=== PATIENT | female | born 1985 | race Caucasian/White ===

== ENCOUNTER 2020-09-04 18:55 | Inpatient (IN) | payer BC ==
--- OUTSIDE RECORDS SUMMARY | 2020-09-04 19:44 | XMS ---
:1985 Author Organization [facility] Re-disclosure Warning The records that you are about to access may contain information from federally- assisted alcohol or drug abuse programs. If such information is present, then the following federally mandated warning applies: This information has been disclosed to you from records protected by federal confidentiality rules (42 CFR part 2). The federal rules prohibit you from making any further disclosure of this information unless further disclosure is expressly permitted by the written consent of the person to whom it pertains or as otherwise permitted by 42 CFR part 2. A general authorization for the release of medical or other information is NOT sufficient for this purpose. The Federal rules restrict any use of the information to criminally investigate or prosecute any alcohol or drug abuse patient.The records that you are about to access may contain highly sensitive health information, the redisclosure of which is protected by Article 27-F of the [facility] Public Health law. If you continue you may haveaccess to information: Regarding HIV / AIDS; Provided by facilities licensed or operated by the [facility] Office of Mental Health; or Provided by the [facility] Office for People With Developmental Disabilities. If such information is present, then the following [facility] mandated warning applies: This information has been disclosed to you from confidential records which are protected by state law. State law prohibits you from making any further disclosure of this information without the specific written consent of the person to whom it pertains, or as otherwise permitted by law. Any unauthorized further disclosure in violation of state law may result in a fine or snf sentence or both. A general authorization for the release of medical or other information is NOT sufficient authorization for further disclosure. Insurance Providers Payer name Policy type / Policy ID Covered Covered libertarian's Policy Plan Coverage type libertarian ID relationship to Peterson Information peterson BC POS [id number] SP [id number] Results ID Date Data Source [id number] 08/31/2020 02:16:00 PM EST [facility] Name Value Range Interpretation Description Data Sup porting Code Source(s) Document(s ) SARS [facility] coronavirus 2 RNA This lab was ordered by [facility] and reported by [facility]. Procedure
[2020-09-04 20:27] LABS: BASO % 0.2 % (0-2.0); EOS % 0.6 % (0-4.5); HEMOGLOBIN 13.5 GM/dL (10.7-15.3); LYMPH % 22.6 % (8-40); MCH 31.2 pg (25.7-33.7); MCHC 34.6 g/dl (32.0-36.0); MEAN CELL VOLUME 90.1 fl (80-96); MEAN PLT VOLUME 10.5 fl (7.5-11.1); MONO % 5.5 % (3.8-10.2); NEUT % 71.1 % (42.8-82.8); PLATELET COUNT 162 K/MM3 (134-434); RBC 4.33 M/mm3 (3.60-5.2); RDW 14.2 % (11.6-15.6); WHITE BLOOD COUNT 10.7 K/mm3 (4.0-10.0)
[2020-09-04] MEDS ORDERED: DINOPROSTONE 10 MG VAGINAL SUPPOSITORY VG ONE (20:29)
[2020-09-04] MEDS ORDERED: DEXTROSE 5%-LACTATED RINGERS 1,000 ML IV SCH (20:30)
--- NOTE | 2020-09-04 20:35 | HP ---
Past Medical History - Primary Care Physician PCP:: Navid Duvall - Admission Chief Complaint: 34yo P1 with at EGA 40wks admitted for labor indx. 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 (Patient with h/o Spina Bifida occulta) Cardiovascular: No: AFIB, Aneurysm, Aortic Insufficiency, Aortic Stenosis, CAD, CHF, Deep Vein Thrombosis, HTN, Hyperlipdemia, [place], Mitral Insufficiency, Mitral Stenosis, Murmur, Pulmonary Hypertension, Other Pulmonary: No: Asthma, Bronchitis, Cancer, COPD, O2 Dependent, Pneumonia, Previously Intubated, Pulmonary Embolus, Pulmonary Fibrosis, Sleep Apnea, Other Gastrointestinal: No: Ascites, Cancer, Constipation, Crohn's Disease, Diverticulitis, Diverticulosis, Esophageal Varices, Gastritis, GERD, GI Bleed, Hemorrhoids, Hiatal Hernia, Inflamatory Bowel Disease, Irritable Bowel Disease, Pancreatitis, Peptic Ulcer Disease, Ulcerative Colitis, Other Hepatobiliary: No: Cirrhosis, Cholelithiasis, Cholecystitis, Choledocholithiasis, Hepatitis A, Hepatitis B, Hepatitis C, Other Renal/: No: Renal Failure, Renal Inusuff, BPH, Cancer, Hematuria, Hemodialys is, Neurogenic Bladder, Renal Calculi, UTI, Other Reproductive: No: Ectopic , Endometriosis, Fibroids, PID, Polycystic Ovary Syndrome, Postmenopausal, Other ...Para: 1 () ...Term: 1 ... Weeks Gestation by Dates: 40 Heme/Onc: No: Anemia, B12 Deficiency, Bleeding Disorder, Cancer, Current Chemotherapy, Current Radiation Therapy, Hemochromatosis, Hypercoaguable State, Myeloproliferative Synd, Sickle Cell Disease, Sickle Cell Trait, Thrombocytopenia, Other Infectious Disease: Yes: Other (genital HSV hx) Psych: No: Addictions, Anxiety, Bipolar, Depression, Panic, Psychosis, Schizophrenia, Other Musculoskeletal: No: Bursitis, Chronic low back pain, Hemiparesis, Hemiplegia, Osteoarthritis, Paraplegia, Other Rheumatology: No: Fibromyalgia, Gout, Lupus, Rheumatoid Arthritis, Sarcoidosis, Vasculitis, Other ENT: No: Allergic Rhinitis, Sinusitis, Other Dermatology: No: Basal Cell, Cellulitis, Eczema, Melanoma, Psoriasis, Squamous Cell, Other - Past Surgical History Past Surgical History: Yes: None Hx Myomectomy: No Hx Transabdominal Cerclage: No - Smoking History Smoking history: Never smoked Have you smoked in the past 12 months: No - Alcohol/Substance Use Hx Alcohol Use: No History of Substance Use: reports: None - Social History Usual Living Arrangement: Yes: With Spouse, With Child Do you think of yourself as: Straight/Heterosexual ADL: Independent History of Recent Travel: No Home Medications - Allergies Allergies/Adverse Reactions: Allergies Allergy/AdvReac Type Severity Reaction Status Date / Time No Known Allergies Allergy Verified 09/04/20 20:00 - Home Medications Home Medications: Ambulatory Orders Acyclovir BID 09/04/20 Dha 09/04/20 Family Medical History Family Hx Cardiac Disorders: Mother Review of Systems - Review of Systems Constitutional: reports: No Symptoms Eyes: reports: No Symptoms HENT: reports: No Symptoms Neck: reports: No Symptoms Cardiovascular: reports: No Symptoms Respiratory: reports: No Symptoms Gastrointestinal: reports: No Symptoms Genitourinary: reports: No Symptoms Breasts: reports: No Symptoms Reported Musculoskeletal: reports: No Symptoms Integumentary: reports: No Symptoms Neurological: reports: No Symptoms Endocrine: reports: No Symptoms Hematology/Lymphatic: reports: No Symptoms Psychiatric: reports: No Symptoms Pain Intensity: 0 Physical Exam - Maternity Constitutional: Yes: Well Nourished, No Distress, Calm Eyes: Yes: WNL, Conjunctiva Clear, EOM Intact HENT: Yes: WNL, Atraumatic, Normocephalic Neck: Yes: WNL, Supple, Trachea Midline Cardiovascular: Yes: WNL, Regular Rate and Rhythm Lungs: Clear to auscultation, Normal air movement Breast(s): Yes: WNL - Abdominal Exam/OB Fundal Height: 40 Number of Fetuses: Single Presentation: Vertex Contractions: Yes Regularity: Irritability Intensity: Unaware Monitor Mode: External Heart Rate (range): 140 Heart Rate Location: Midline Category: I Accelerations: Uniform Decelerations: None - Vaginal Exam/OB Vaginal Bleeding: No Speculum Exam: No Dilatation (cm): 1 Effacement (%): 0 Amniotic Membrane Status: Intact Presentation: Vertex/Position Station: -4 (Gynecoid pelvimetry, EFW 3400 gm by Armaan covington) - Physical Exam Musculoskeletal: Yes: WNL Extremities: Yes: WNL Edema: No Integumentary: Yes: WNL Deep Tendon Reflex Grade: Normal +2 ...Motor Strength: WNL Psychiatric: Yes: WNL, Alert, Oriented Hemorrhage Risk Assessment - Risk Factors Medium Risk Factors: Yes: None High Risk Factors: Yes: None Risk Score: 1 Risk Level: Medium Risk Imaging - Results Ultrasound: Report Reviewed Assessment/Plan 34yo P1 with at EGA 40wks admitted for labor indx. Pt is not in labor. Fetus with Category I tracing. Adequate gynecoid pelvimetry on exam. We had long discussion re: risks, benefits, and alternatives of labor induction. I explained the options of expectant management awaiting spontaneous labor, induction of labor, and elective section. The risks of uterine tachysystole, distress, uterine rupture, need for emergency C/S, hemorrhage, infection, scarring, etc. were discussed. We also discussed the risks of meconium aspiration, shoulder dystocia, and anesthesia options. The pt requested to proceed with induction. We discussed the alternative methods of induction with Cervidil, Cytotec, Folley ballon, and pitocin. The pt prefers Cervidil followed by pitocin, if needed
[2020-09-04 20:40] LABS: INR 0.88 (0.83-1.09); PROTHROMBIN TIME (PATIENT) 10.7 SEC (9.7-13.0)
[2020-09-04 20:43] LABS: ACTIVATED PTT 25.9 SECONDS (25.2-36.5)
[2020-09-04 20:58] LABS: CALCIUM 8.4 mg/dL (8.5-10.1)
[2020-09-04 21:01] LABS: CREATININE 0.7 mg/dL (0.55-1.3)
[2020-09-04 21:47] VITALS: BMI 30.1
[2020-09-05] MEDS ORDERED: AMPICILLIN SODIUM 2 GM VIAL ONE (02:41)
[2020-09-05] MEDS ORDERED: BUTORPHANOL TARTRATE 2 MG/ML VIAL ONE (02:41)
[2020-09-05] MEDS ORDERED: SODIUM CHLORIDE 100 ML IVPB ONE ×3 (02:41→10:27)
[2020-09-05] MEDS ORDERED: PROMETHAZINE HCL 25 MG/1 ML VIAL ONE (02:41)
[2020-09-05] MEDS ORDERED: AMPICILLIN - 2 GM in SODIUM CHLORIDE 100 ML IVPB ONE (02:45)
[2020-09-05] MEDS ORDERED: PROMETHAZINE HCL 25 MG/1 ML VIAL IVPB ONE (02:45)
[2020-09-05] MEDS ORDERED: BUTORPHANOL TARTRATE 2 MG/ML VIAL IVPB ONE (02:45)
[2020-09-05] MEDS ORDERED: PCA PUMP NR ONE (03:22)
[2020-09-05] MEDS ORDERED: FENTANYL/BUPIVACAINE/NS/PF - PCEA - 50 ML DISP.SYRIN EP ONE ×2 (03:22→09:40)
[2020-09-05] MEDS: FENTANYL/BUPIVACAINE/NS/PF - PCEA - 50 ML DISP.SYRIN EP SCH ×2 (04:40→09:30)
[2020-09-05] MEDS ORDERED: BUPIVACAINE HCL/PF 0.25% (2.5MG/ML) 10 ML VIAL ONE ×2 (04:45→09:15)
[2020-09-05] MEDS ORDERED: NALOXONE HCL 0.4 MG/ML VIAL IVPUSH PRN (04:58)
--- NOTE | 2020-09-05 05:27 | PN ---
Progress Note (short form) - Note Progress Note: Anesthesiologist note Requested labor epidural. Dinorah is 34 y old female, in labor. History of spina bifida occult, an incidental finding at age of 22 due to back pain. Never had MRI of her back done. Denies any symptoms other than back pain if she does strenuous physical activity. Denies any weakness in extremities. Reports no bladder and bowel function deficiency. Had labor epidural 7 years ago without any complications at [facility]. In addition pat is sickle cell disease carrier. On physical exam, grossly intact neurologically. Lower extremity strength and sensitivity intact. Awake, somewhat drowsy after stadol but is able to give adequate history, oriented x3. Risks and benefits of epidural in general and specifically in Spina bifida occult included but not limited to higher risk of wet tap and possible unpredictable epidural coverage explained for the patient and her . Patient and her consented to proceed with the procedure. Discussed with dr Duvall, no further information or MRI available. See Anesthesia record for procedure note.
[2020-09-05] MEDS: AMPICILLIN - 1 GM in SODIUM CHLORIDE 100 ML IVPB SCH ×3 (06:45→23:59)
[2020-09-05] MEDS ORDERED: AMPICILLIN SODIUM 1 GM VIAL ONE ×2 (06:48→10:27)
--- NOTE | 2020-09-05 07:32 | PN ---
Ante-Partal Exam - Subjective Subjective: No complaints. Pt is s/p epidural. Marina spontaneously. Vital Signs: Vital Signs Temperature 98.5 F 09/05/20 06:00 Pulse Rate 71 09/05/20 06:45 Respiratory Rate 16 09/05/20 06:45 Blood Pressure 130/82 09/05/20 06:45 O2 Sat by Pulse Oximetry (%) 99 09/05/20 06:45 Bleeding: No Headache: No Visual changes: No Right upper quadrant pain: No Pain (scale 1-10): 0 - Contractions Contractions: Yes Regularity: Irregular (q2-4min) Intensity: Unaware Monitor Mode: External - Exam during Labor Heart Rate: 140 Variability: Moderate Heart Rate Location: Midline Category: I Monitor Accelerations: Present Monitor Decelerations: None Exam: Vaginal Dilatation (cm): 6 Effacement (%): 80 Amniotic Membrane Status: Intact Presentation: Vertex Station: -1 - Intrapartum Hemorrhage Risk Medium Risk Factors: None High Risk Factors: None Risk Score: 0 Risk Level: Low Risk - Assessment/Plan Assessment/Plan: Pt progressed to active labor. Gynecoid pelvimetry Fetus with category I tracing Continue monitoring labor.
[2020-09-05] MEDS ORDERED: OXYTOCIN 20 UNITS in 0.9% NS 20 UNIT/1,000 ML INFUS.BAG IV ONE (12:54)
[2020-09-05] MEDS ORDERED: LIDOCAINE HCL 1% PRESERVATIVE FREE - 30ML VIAL ONE (13:42)
[2020-09-05] MEDS ORDERED: BENZOCAINE 28 GM HEMORRHOIDAL OINTMENT TP PRN (13:58)
[2020-09-05] MEDS ORDERED: BISACODYL 10 MG SUPP.RECT RC PRN (13:58)
[2020-09-05] MEDS ORDERED: METHYLERGONOVINE MALEATE 0.2 MG/1 ML AMP IM PRN (13:58)
[2020-09-05] MEDS ORDERED: WITCH HAZEL 50% (TUCKS) 40 PAD/JAR PAD TP PRN (13:58)
[2020-09-05] MEDS ORDERED: BENZOCAINE 20% 57 GM BOTTLE TP PRN (13:58)
[2020-09-05] MEDS ORDERED: OXYTOCIN 20 UNITS in 0.9% NS 20 UNIT/1,000 ML INFUS.BAG IV SCH (14:00)
[2020-09-05] MEDS: IBUPROFEN 600 MG TABLET (FP) PO PRN (15:56)
[2020-09-05] MEDS: ACETAMINOPHEN 325 MG TABLET (FP) PO PRN (15:58)
--- NOTE | 2020-09-05 22:38 | PN ---
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
[2020-09-06] MEDS: IBUPROFEN 600 MG TABLET (FP) PO PRN (03:02)
[2020-09-06] MEDS: ACETAMINOPHEN 325 MG TABLET (FP) PO PRN (03:02)
[2020-09-06 09:35] LABS: BASO % 0.1 % (0-2.0); EOS % 0.9 % (0-4.5); HEMATOCRIT 36.3 % (32.4-45.2); HEMOGLOBIN 12.3 GM/dL (10.7-15.3); LYMPH % 14.8 % (8-40); MCH 31.1 pg (25.7-33.7); MCHC 33.7 g/dl (32.0-36.0); MEAN PLT VOLUME 10.5 fl (7.5-11.1); MONO % 3.5 % (3.8-10.2); NEUT % 80.7 % (42.8-82.8); PLATELET COUNT 148 K/MM3 (134-434); RBC 3.95 M/mm3 (3.60-5.2); RDW 14.5 % (11.6-15.6); WHITE BLOOD COUNT 13.7 K/mm3 (4.0-10.0)
--- NOTE | 2020-09-06 09:35 | PN ---
Post Progress Note - Subjective Subjective: Patient without acute complaints. Reports tolerating oral intake without nausea or vomiting. Ambulating without dizziness. Denies fevers or chills. Pain well controlled with oral pain medication. without difficulty. Post Day: 1 Type of Delivery: Vital Signs: Vital Signs Temperature 98.3 F 09/06/20 04:53 Pulse Rate 80 09/06/20 04:53 Respiratory Rate 18 09/06/20 04:53 Blood Pressure 127/66 09/06/20 04:53 O2 Sat by Pulse Oximetry (%) 97 09/05/20 18:00 Breast Exam: Yes: Soft Uterus: Yes: Fundus Firm, Fundus @ umbilicus Abdomen/GI: Yes: Abdomen soft, Tolerating PO Lochia: Yes: Rubra Lochia, amount: Small Extremities: Yes: Calves non-tender Activity: Ambulating - Labs Labs: CBC WBC 10.7 K/mm3 (4.0-10.0) H 09/04/20 20: RBC 4.33 M/mm3 (3.60-5.2) 09/04/20 20:02 Hgb 13.5 GM/dL (10.7-15.3) 09/04/20 20: Hct 39.0 % (32.4-45.2) 09/04/20 20: MCV 90.1 fl (80-96) 09/04/20 20: MCH 31.2 pg (25.7-33.7) 09/04/20 20: MCHC 34.6 g/dl (32.0-36.0) 09/04/20 20: RDW 14.2 % (11.6-15.6) 09/04/20 20: Plt Count 162 K/MM3 (134-434) 09/04/20 20: MPV 10.5 fl (7.5-11.1) 09/04/20 20: Absolute Neuts (auto) 7.6 K/mm3 (1.5-8.0) 09/04/20 20: Neutrophils % 71.1 % (42.8-82.8) 09/04/20 20: Lymphocytes % 22.6 % (8-40) 09/04/20 20: Monocytes % 5.5 % (3.8-10.2) 09/04/20 20:02 Eosinophils % 0.6 % (0-4.5) 09/04/20 20:02 Basophils % 0.2 % (0-2.0) 09/04/20 20:02 Nucleated RBC % 0 % (0-0) 09/04/20 20:02 Assessment/Plan 34yo P2 now s/p doing well VSS, Afebrile Labs wnl Rh pos no need for RhoGam Baby boy for circumcision Plan to d/c in am
--- NOTE | 2020-09-06 09:35 | DS ---
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: Vital Signs Temperature 98.3 F 09/06/20 04:53 Pulse Rate 80 09/06/20 04:53 Respiratory Rate 18 09/06/20 04:53 Blood Pressure 127/66 09/06/20 04:53 O2 Sat by Pulse Oximetry (%) 97 09/05/20 18:00 Labs: CBC, BMP 09/04/20 20:02 Delivery - Delivery Vaginal Delivery: No Problems, Spontaneous Type of Anesthesia: Local, Epidural Episiotomy/Laceration: 2nd degree EBL (cc): 350 Delivery, Single - Stages of Labor Date 1st Stage Initiatied: 09/05/20 Time 1st Stage Initiated: 02:30 Date 2nd Stage Initiated: 09/05/20 Time 2nd Stage Initiated: 13:00 Date of Delivery: 09/05/20 Time of Delivery: 13:37 Time Placenta Delivered: 13:45 Placenta: Yes: Spontaneous, Normal Configuration - Condition of Infant 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
[2020-09-06] MEDS: PRENATAL VITAMINS W/ FOLIC ACID TABLET (FP) PO SCH (09:46)
[2020-09-06] MEDS ORDERED: SENNOSIDES/DOCUSATE COMBO (SENNA PLUS) TABLET (UD) PO PRN (22:00)
[2020-09-07 08:41] VITALS: BP 126/75; PULSE 78; TEMP 98.2
[2020-09-07] MEDS: PRENATAL VITAMINS W/ FOLIC ACID TABLET (FP) PO SCH (09:20)
--- NOTE | 2020-09-07 13:05 | PN ---
Post Progress Note - Subjective Subjective: Patient without acute complaints. Reports tolerating oral intake without nausea or vomiting. Ambulating without dizziness. Denies fevers or chills. Pain well controlled with oral pain medication. without difficulty. Passing flatus. Type of Delivery: Vital Signs: Vital Signs Temperature 98.2 F 09/07/20 08:39 Pulse Rate 78 09/07/20 08:39 Respiratory Rate 18 09/07/20 08:39 Blood Pressure 126/75 09/07/20 08:39 O2 Sat by Pulse Oximetry (%) 96 09/07/20 08:39 Breast Exam: Yes: Soft Uterus: Yes: Fundus Firm Abdomen/GI: Yes: Abdomen soft, Passing flatus, Tolerating PO. No: Abdominal Distention, Tender Lochia: Yes: Rubra Lochia, amount: Small Extremities: No: Calves non-tender, Edema Activity: Ambulating - Labs Labs: CBC WBC 13.7 K/mm3 (4.0-10.0) H 09/06/20 08:33 RBC 3.95 M/mm3 (3.60-5.2) 09/06/20 08:33 Hgb 12.3 GM/dL (10.7-15.3) 09/06/20 08:33 Hct 36.3 % (32.4-45.2) 09/06/20 08:33 MCV 92.0 fl (80-96) 09/06/20 08:33 MCH 31.1 pg (25.7-33.7) 09/06/20 08:33 MCHC 33.7 g/dl (32.0-36.0) 09/06/20 08:33 RDW 14.5 % (11.6-15.6) 09/06/20 08:33 Plt Count 148 K/MM3 (134-434) 09/06/20 08:33 MPV 10.5 fl (7.5-11.1) 09/06/20 08:33 Absolute Neuts (auto) 11.0 K/mm3 (1.5-8.0) H 09/06/20 08:33 Neutrophils % 80.7 % (42.8-82.8) 09/06/20 08:33 Lymphocytes % 14.8 % (8-40) D 09/06/20 08:33 Monocytes % 3.5 % (3.8-10.2) L 09/06/20 08:33 Eosinophils % 0.9 % (0-4.5) 09/06/20 08:33 Basophils % 0.1 % (0-2.0) 09/06/20 08:33 Nucleated RBC % 0 % (0-0) 09/06/20 08:33 Assessment/Plan 34 yo PPD # 2 s/p , afebrile, vital signs stable, stable for DC home 1. Patient stable for discharge home today. 2. Patient encouraged to contact MD for: - Severe pain not controlled by oral pain medication - Fevers or chills - Nausea or vomiting, intolerance of oral intake 3. Patient to follow up in office in 4-6 weeks for visit
== END 2020-09-07 13:50 | disposition home or self-care (01) | DRG 807 ==
LOC: JLDR 18:55 → J3W 09-05 15:17
PROVIDERS: ADMIT Obstetrics & Gynecology; ATTEND Obstetrics & Gynecology
PROC: 3E0P7VZ Introduction of Hormone into Female Reproductive, Via Natural or Artificial Opening (ICD-10-PCS; 2020-09-04)
PROC: 10E0XZZ Delivery of Products of Conception, External Approach (ICD-10-PCS; principal; 2020-09-05)
DX: O48.0 Post-term pregnancy (principal); Z37.0 Single live birth; O70.1 Second degree perineal laceration during delivery; Z3A.40 40 weeks gestation of pregnancy; O99.824 Streptococcus B carrier state complicating childbirth; B95.1 Streptococcus, group B, as the cause of diseases classified elsewhere; O99.02 Anemia complicating childbirth; D57.3 Sickle-cell trait; Z87.798 Personal history of other (corrected) congenital malformations; Z86.19 Personal history of other infectious and parasitic diseases
CPT/HCPCS: 36415; 59409; 80048; 85025; 85610; 85730; 86780; 86850; 86900; 86901

== ENCOUNTER 2023-10-04 06:02 | Inpatient (IN) | payer BC ==
[2023-10-04] MEDS ORDERED: ELECTROLYTE-148 SOLN 500 ML IV SCH ×2 (06:15→06:45)
[2023-10-04] MEDS ORDERED: CITRIC ACID/SODIUM CITRATE 30 ML UNIT-DOSE CUP PO ONE (06:15)
[2023-10-04] MEDS ORDERED: morphine SULFATE/PF 1 MG/2 ML (2cc Syringe - QUVA) ONE (08:10)
[2023-10-04] MEDS ORDERED: FENTANYL CITRATE/PF 50 MCG/ML VIAL ONE (08:11)
[2023-10-04] MEDS ORDERED: KETOROLAC TROMETHAMINE 30 MG/1 ML VIAL ONE (08:47)
[2023-10-04] MEDS ORDERED: OXYTOCIN 10 UNITS/ML VIAL ONE (08:47)
[2023-10-04] MEDS ORDERED: PHENYLEPHRINE HCL 10 MG/1 ML SINGLE DOSE VIAL ONE (08:47)
[2023-10-04] MEDS ORDERED: ONDANSETRON 4 MG/2 ML VIAL ONE ×2 (08:47→11:07)
[2023-10-04] MEDS ORDERED: ceFAZolin SODIUM 1 GM VIAL ONE (08:47)
[2023-10-04] MEDS: OXYTOCIN 20 UNITS in 0.9% NS 20 UNIT/1,000 ML INFUS.BAG IV SCH ×2 (09:01→17:28)
[2023-10-04 09:34] LABS: CORD HCO3 26.7 mmHg (20-29); CORD PCO2 63.5 mmHg (30-78); CORD pH 7.241 (7.14-7.44)
[2023-10-04 09:37] LABS: CORD BASE EXCESS -1.2 mmol/L (0-2); CORD HCO3 24.7 mmHg (20-29); CORD pH 7.348 (7.14-7.44)
[2023-10-04] MEDS ORDERED: oxyCODONE HCL 5 MG TABLET PO PRN ×2 (09:54→09:59)
[2023-10-04] MEDS ORDERED: ONDANSETRON 4 MG/2 ML VIAL IVPB PRN (09:54)
[2023-10-04] MEDS: IBUPROFEN 800 MG/8 ML IJ IVPB SCH ×2 (10:00→17:52)
[2023-10-04] MEDS: ACETAMINOPHEN 1000 MG/100 ML BAG IVPB SCH ×2 (10:00→16:55)
[2023-10-04] MEDS ORDERED: morphine SULFATE/PF 1 MG/2 ML (2cc Syringe - QUVA) SPIN ONE (10:06)
[2023-10-04] MEDS ORDERED: ACETAMINOPHEN 1000 MG/100 ML BAG IVPB ONE (10:07)
[2023-10-04] MEDS ORDERED: LACTATED RINGERS SOLUTION 1,000 ML IV SCH (10:15)
[2023-10-04] MEDS ORDERED: OXYTOCIN 20 UNITS in 0.9% NS 20 UNIT/1,000 ML INFUS.BAG IV ONE (10:47)
[2023-10-04] MEDS ORDERED: ACETAMINOPHEN INJECTION 100 ML IVPB ONE (10:47)
[2023-10-04] MEDS: SENNOSIDES/DOCUSATE COMBO (SENNA PLUS) TABLET (UD) PO SCH (23:39)
[2023-10-05] MEDS: ACETAMINOPHEN 1000 MG/100 ML BAG IVPB SCH ×2 (00:29→06:15)
[2023-10-05] MEDS: IBUPROFEN 800 MG/8 ML IJ IVPB SCH ×2 (01:38→09:23)
[2023-10-05 07:24] LABS: BASO % 0.2 % (0-2.0); EOS % 0.6 % (0-4.5); HEMATOCRIT 32.7 % (32.4-45.2); HEMOGLOBIN 11.2 GM/dL (10.7-15.3); LYMPH % 15.8 % (8-40); MCH 29.7 pg (25.7-33.7); MCHC 34.4 g/dl (32.0-36.0); MEAN CELL VOLUME 86.4 fl (80-96); MEAN PLT VOLUME 9.1 fl (7.5-11.1); MONO % 5.2 % (3.8-10.2); NEUT % 78.2 % (42.8-82.8); PLATELET COUNT 181 10^3/uL (134-434); RBC 3.78 M/mm3 (3.60-5.2); RDW 14.1 % (11.6-15.6); WHITE BLOOD COUNT 10.1 K/mm3 (4.0-10.0)
[2023-10-05] MEDS ORDERED: BISACODYL 10 MG SUPP.RECT RC PRN (09:54)
[2023-10-05] MEDS ORDERED: ACETAMINOPHEN 500 MG TABLET (FP) PO PRN (16:00)
[2023-10-05] MEDS: OXYTOCIN 20 UNITS in 0.9% NS 20 UNIT/1,000 ML INFUS.BAG IV SCH (20:18)
[2023-10-05] MEDS: SENNOSIDES/DOCUSATE COMBO (SENNA PLUS) TABLET (UD) PO SCH (21:22)
[2023-10-05 23:24] VITALS: RESP 18
[2023-10-06] MEDS: SIMETHICONE 80 MG TAB.CHEW (FP) PO PRN ×2 (04:18→20:04)
[2023-10-06] MEDS: IBUPROFEN 600 MG TABLET (FP) PO PRN ×2 (04:19→20:04)
[2023-10-06] MEDS: SENNOSIDES/DOCUSATE COMBO (SENNA PLUS) TABLET (UD) PO SCH (21:37)
[2023-10-07] MEDS: IBUPROFEN 600 MG TABLET (FP) PO PRN (08:27)
[2023-10-07 10:34] VITALS: BP 145/79; PULSE 71; TEMP 97.5
== END 2023-10-07 12:15 | disposition home or self-care (01) | DRG 787 ==
LOC: JLDR 06:02 → J3W 12:30
PROVIDERS: ADMIT Obstetrics & Gynecology; ATTEND Obstetrics & Gynecology
PROC: 10D00Z1 Extraction of Products of Conception, Low, Open Approach (ICD-10-PCS; principal; 2023-10-04)
DX: O32.2XX0 Maternal care for transverse and oblique lie, not applicable or unspecified (principal); O98.52 Other viral diseases complicating childbirth; B00.9 Herpesviral infection, unspecified; Z3A.39 39 weeks gestation of pregnancy; Z37.0 Single live birth
CPT/HCPCS: 36415; 36600; 82803; 85025; 88307-TC